=== PATIENT | female | born 1990 | race African-American/Black ===

== ENCOUNTER 2021-03-27 11:10 | Inpatient (IN) | payer OTHER ==
[2021-03-27] MEDS ORDERED: BUPRENORPHINE HCL 150 MCG, BUPRENORPHINE HCL 75 MCG BC ONE (12:03)
[2021-03-27] MEDS ORDERED: NICOTINE 10 MG CARTRIDGE (INHALER) IH PRN (12:03)
[2021-03-27] MEDS ORDERED: MENTHOL/PHENOL 1 EACH UD MM PRN (12:03)
[2021-03-27] MEDS ORDERED: MAG HYDROX/AL HYDROX/SIMETH 30 ML UNIT-DOSE CUP PO PRN (12:03)
[2021-03-27] MEDS ORDERED: cloNIDine HCL 0.1 MG TABLET PO ONE (12:03)
[2021-03-27] MEDS ORDERED: BISMUTH SUBSALICYLATE 524 MG/30 ML PO PRN (12:03)
[2021-03-27] MEDS ORDERED: MAGNESIUM HYDROX 2400MG/30ML ORAL SUSPENSION 30 ML CUP PO PRN (12:03)
[2021-03-27] MEDS ORDERED: LOPERAMIDE HCL 2 MG CAPSULE PO PRN (12:03)
[2021-03-27] MEDS ORDERED: ACETAMINOPHEN 325 MG TABLET (FP) PO PRN ×2 (12:03)
[2021-03-27] MEDS ORDERED: IBUPROFEN 400 MG TABLET (FP) PO PRN (12:03)
[2021-03-27] MEDS ORDERED: MAGNESIUM CITRATE 300 ML BOTTLE PO PRN (12:03)
[2021-03-27] MEDS ORDERED: ONDANSETRON *ODT* 4 MG TABLET SL PRN (12:03)
[2021-03-27 12:31] VITALS: BMI 20.3
[2021-03-27] MEDS ORDERED: hydrOXYzine PAMOATE 25 MG CAPSULE (FP) PO ONE (13:22)
[2021-03-27] MEDS ORDERED: BUPRENORPHINE HCL 150 MCG FILM BC ONE (13:22)
[2021-03-27] MEDS ORDERED: cloNIDine HCL 0.1 MG TABLET ONE (13:22)
[2021-03-27] MEDS ORDERED: BUPRENORPHINE HCL 75 MCG FILM BC ONE (13:22)
[2021-03-27] MEDS: PRENATAL VITAMINS W/ FOLIC ACID TABLET (FP) PO SCH (13:39)
[2021-03-27] MEDS: hydrOXYzine PAMOATE 25 MG CAPSULE (FP) PO SCH ×3 (13:39→22:20)
[2021-03-27] MEDS ORDERED: cloNIDine HCL 0.1 MG TABLET PO PRN (16:03)
[2021-03-27 16:12] LABS: HEMOGLOBIN 11.6 GM/dL (10.7-15.3); MCH 29.8 pg (25.7-33.7); MCHC 33.1 g/dl (32.0-36.0); MEAN CELL VOLUME 90.1 fl (80-96); MEAN PLT VOLUME 10.3 fl (7.5-11.1); PLATELET COUNT 187 10^3/uL (134-434); RBC 3.88 M/mm3 (3.60-5.2); RDW 13.2 % (11.6-15.6); WHITE BLOOD COUNT 4.2 K/mm3 (4.0-10.0)
[2021-03-27 16:27] LABS: CALCIUM 9.6 mg/dL (8.5-10.1)
[2021-03-27 16:28] LABS: ALBUMIN 3.5 g/dl (3.4-5.0)
[2021-03-27 16:32] LABS: BILIRUBIN,TOTAL 0.9 mg/dL (0.2-1); TOT PROT 7.8 g/dl (6.4-8.2)
[2021-03-27] MEDS: METHOCARBAMOL 500 MG TABLET PO PRN ×2 (17:52→23:46)
[2021-03-27] MEDS: diazePAM 5 MG TABLET PO PRN (20:49)
[2021-03-27] MEDS: THIAMINE HCL 100 MG TABLET (FP) PO SCH (22:20)
[2021-03-27] MEDS: MELATONIN 5 MG TABLETS PO SCH (22:20)
[2021-03-28] MEDS ORDERED: BUPRENORPHINE HCL 150 MCG FILM BC ONE ×2 (04:35→18:00)
[2021-03-28] MEDS ORDERED: BUPRENORPHINE HCL 75 MCG FILM BC ONE ×2 (04:35→17:59)
[2021-03-28] MEDS: hydrOXYzine PAMOATE 25 MG CAPSULE (FP) PO SCH ×5 (07:35→22:22)
[2021-03-28] MEDS: BUPRENORPHINE HCL 150 MCG, BUPRENORPHINE HCL 75 MCG BC SCH ×2 (07:35→18:00)
[2021-03-28] MEDS: PRENATAL VITAMINS W/ FOLIC ACID TABLET (FP) PO SCH (10:21)
[2021-03-28] MEDS: diazePAM 5 MG TABLET PO PRN (10:23)
[2021-03-28] MEDS ORDERED: DICYCLOMINE HCL 10 MG CAPSULE PO PRN (10:30)
[2021-03-28] MEDS: THIAMINE HCL 100 MG TABLET (FP) PO SCH (22:22)
[2021-03-28] MEDS: MELATONIN 5 MG TABLETS PO SCH (22:22)
[2021-03-29 06:06] LABS: SARS-CoV-2 NAA Not Detected (Not Detected)
[2021-03-29] MEDS: hydrOXYzine PAMOATE 25 MG CAPSULE (FP) PO SCH ×5 (06:11→22:17)
[2021-03-29] MEDS: BUPRENORPHINE HCL 450 MCG FILM BC SCH ×2 (06:12→18:32)
[2021-03-29] MEDS: METHOCARBAMOL 500 MG TABLET PO PRN ×2 (06:14→22:17)
[2021-03-29] MEDS: PRENATAL VITAMINS W/ FOLIC ACID TABLET (FP) PO SCH (10:21)
[2021-03-29] MEDS: diazePAM 5 MG TABLET PO PRN (10:23)
[2021-03-29] MEDS: THIAMINE HCL 100 MG TABLET (FP) PO SCH (22:17)
[2021-03-29] MEDS: MELATONIN 5 MG TABLETS PO SCH (22:17)
[2021-03-30] MEDS ORDERED: LIDOCAINE VISCOUS 2% ORAL/TOP 15 ML UNIT-DOSE CUP MM PRN (03:38)
[2021-03-30] MEDS ORDERED: BUPRENORPHINE/NALOXONE 4 MG/1 MG FILM PACKET SL SCH (06:00)
[2021-03-30] MEDS: hydrOXYzine PAMOATE 25 MG CAPSULE (FP) PO SCH ×2 (06:37→10:44)
[2021-03-30 07:47] VITALS: TEMP 97.1
[2021-03-30 09:03] VITALS: BP 107/71; PULSE 94
[2021-03-30] MEDS: PRENATAL VITAMINS W/ FOLIC ACID TABLET (FP) PO SCH (10:44)
[2021-03-31] MEDS ORDERED: BUPRENORPHINE/NALOXONE 8 MG/2 MG FILM PACKET SL ONE (06:00)
== END 2021-03-30 12:09 | disposition left against medical advice (07) | DRG 770 ==
LOC: YASAS 11:10 → Y3N 13:08
PROVIDERS: ADMIT Allergy & Immunology; ATTEND Allergy & Immunology
PROC: HZ2ZZZZ Detoxification Services for Substance Abuse Treatment (ICD-10-PCS; principal; 2021-03-27)
DX: F11.23 Opioid dependence with withdrawal (principal); F12.10 Cannabis abuse, uncomplicated; F17.210 Nicotine dependence, cigarettes, uncomplicated; K08.89 Other specified disorders of teeth and supporting structures; Z59.01 Sheltered homelessness
CPT/HCPCS: 36415; 80053; 85027; 86780; 93005; 93010; C9803; J0735; U0003; U0005